=== PATIENT | male | born 1985 | race Caucasian/White ===

== ENCOUNTER 2016-10-06 12:13 | Emergency (ER) | payer OTHER ==
[~2016-10-06] VITALS: Ht 177.8 cm; Wt 90.0 kg
[2016-10-06 12:18] VITALS: BP 151/96; PULSE 80; RESP 15; TEMP 98.1; O2SAT 98
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
== END 2016-10-06 14:59 | disposition home or self-care (01) ==
LOC: NEPE 12:13
DX: S20.219A Contusion of unspecified front wall of thorax, initial encounter (principal); V47.0XXA Car driver injured in collision with fixed or stationary object in nontraffic accident, initial encounter; Y93.89 Activity, other specified; Y92.39 Other specified sports and athletic area as the place of occurrence of the external cause; Y99.8 Other external cause status
CPT/HCPCS: 71250